=== PATIENT | female | born 1970 | race Caucasian/White ===

== ENCOUNTER → 2017-08-30 08:49 | Outpatient (CLI) | payer OTHER ==
[2017-08-30 10:12] LABS: ALBUMIN 3.8 g/dL (3.4-5.0); BILIRUBIN - DIRECT 0.11 mg/dL (0.00-0.30); BILIRUBIN - INDIRECT 0.29 mg/dL (0.00-1.00); BILIRUBIN - TOTAL 0.4 mg/dL (0.2-1.3); CHOL - HDL RATIO 1.8 ratio (2.3-4.1); LDL-HDL RATIO 0.7 ratio (1.5-3.5); PROTEIN - SERUM 7.1 g/dL (6.4-8.2)
== END | disposition home or self-care (01) ==
LOC: D.LAB 08:49 → D.RAD 09:30
PROVIDERS: Internal Medicine Gastroenterology
DX: R93.8 Abnormal findings on diagnostic imaging of other specified body structures (principal); R10.12 Left upper quadrant pain; R12 Heartburn; R11.0 Nausea

== ENCOUNTER → 2018-06-20 08:41 | Outpatient (CLI) | payer OTHER | END | disposition home or self-care (01) | LOC: D.US 08:41 | DX: K76.0 Fatty (change of) liver, not elsewhere classified (principal) ==